=== PATIENT | male | born 1995 ===

== ENCOUNTER 2017-05-19 03:32 | Emergency (ER) | payer SELFPAY ==
[2017-05-19 03:44] VITALS: BP 133/91; PULSE 130; RESP 16; TEMP 98.6; O2SAT 98
[2017-05-19] MEDS ORDERED: Lidocaine 1% Inj (20ml) INFIL STA (03:50)
[2017-05-19] MEDS ORDERED: Bacitracin 500 Units/gm Oint Foilpak UD TOP ONE (03:50)
[2017-05-19] MEDS ORDERED: Bacitracin 500 Units/gm Oint Foilpak UD ONE (03:54)
[2017-05-19] MEDS ORDERED: Lidocaine 1% Inj (20ml) ONE (03:54)
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
== END 2017-05-19 04:56 | disposition home or self-care (01) ==
LOC: C.ER 03:32
DX: S01.81XA Laceration without foreign body of other part of head, initial encounter (principal); X99.8XXA Assault by other sharp object, initial encounter